=== PATIENT | male | born 1950 | race African-American/Black ===

== ENCOUNTER 2017-11-18 11:33 | Emergency (ER) | payer MEDICARE ==
[~2017-11-18] VITALS: Ht 180.3 cm; Wt 103.2 kg
[2017-11-18] MEDS ORDERED: COLCHICINE0.6 M2 PO (12:22)
[2017-11-18] MEDS ORDERED: PERCOCET 5/325M1 TAB PO (12:22)
[2017-11-18] MEDS ORDERED: PREDNISONE50 MG PO (12:22)
[2017-11-18 12:25] VITALS: BP 121/78
[2017-11-18] MEDS ORDERED: LORTAB 5/3255 MG PO (12:30)
[2017-11-18] MEDS ORDERED: LISINOPRIL10 M1 PO (16:40)
[2017-11-18] MEDS ORDERED: ATORVASTATIN CA20 MG PO (16:40)
[2017-11-18] MEDS ORDERED: METFORMIN HCL500 M1 PO (16:41)
== END 2017-11-18 12:32 | disposition home or self-care (01) ==
LOC: ED 11:33
DX: M10.9 Gout, unspecified (principal); M25.571 Pain in right ankle and joints of right foot